=== PATIENT | male | born 1980 | race Caucasian/White ===

== ENCOUNTER 2017-03-15 00:21 | Emergency (ER) | payer MEDICAID ==
[2017-03-15 00:48] VITALS: BP 131/80; PULSE 90; RESP 16; TEMP 97.9; O2SAT 93
--- NOTE | 2017-03-15 00:56 | EDPHY ---
H & P Stated Complaint: feet hurt, worried about chemical exposure on Tuesday HPI/ROS: HPI CHIEF COMPLAINT: Bilateral lower extremity swelling, redness HISTORY OF PRESENT ILLNESS: This patient 36-year-old male, significant past medical history for chronic back pain, takes oxycodone daily, presents emergency room with 24 hours of bilateral lower extremity edema, redness and pain. Additionally tells me he has been soaking his feet in salt baths. He thought this may help with his feet pain and swelling. States on Tuesday night he walked to his car barefoot through water after drained and then Tuesday he woke up with feet swelling redness leg swelling and pain. Past Medical History: Chronic back pain Past Surgical History: Lumbar back fusion Social History: Smokes tobacco, marijuana, occasional alcohol use, denies other illicit drugs denies IV drug use Family History: Noncontributory ROS REVIEW OF SYSTEMS: A comprehensive 10 point review of systems is otherwise negative aside from elements mentioned in the history of present illness. Exam Constitutional appears nontoxic triage nursing summary reviewed, vital signs reviewed, awake/alert. Eyes normal conjunctivae and sclera, EOMI, PERRLA. HENT normal inspection, atraumatic, moist mucus membranes, no epistaxis, neck supple/ no meningismus, no raccoon eyes. Respiratory clear to auscultation bilaterally, normal breath sounds, no respiratory distress, no wheezing. Cardiovascular rate normal, regular rhythm, no murmur, no edema, distal pulses normal. Gastrointestinal soft, non-tender, no rebound, no guarding, normal bowel sounds, no distension, no pulsatile mass. Genitourinary no CVA tenderness. Musculoskeletal no midline vertebral tenderness, full range of motion, no calf swelling, no tenderness of extremities, no meningismus, good pulses, neurovascularly intact. Skin bilateral lower extremity there is pitting edema from his knees down including feet, there is mild redness and warmth bilaterally. There is no crepitus. No abscess. Minimally tender. Bilateral lower extremities are neurovascular intact. Neurologic awake, alert and oriented x 3, AAOx3, moves all 4 extremities equally, motor intact, sensory intact, CN II-XII intact, normal cerebellar, normal vision, normal speech. Psychiatric normal mood/affect. Heme/Lymph/Immune no lymphadenopathy. Differential Diagnosis: Includes but is not limited to in a particular order: Renal failure, liver failure, peripheral edema, venous insufficiency, cellulitis Medical Decision Making: Plan for this patient check blood work, try to differentiate if this peripheral edema versus cellulitis. Will do basic blood work including inflammatory markers. Re-evaluation: [id number]: Patient resting comfortably here in emergency room no acute distress. Blood work reviewed no signs of infection specifically is no high white count, there is no bandemia, ESR and CRP appear normal. I doubt this is bilateral lower extremity circumferential cellulitis. Most likely this is peripheral edema. I do recommend that he elevates his legs as much as possible, use compression stockings. If he develops worsening redness, fever, pain, swelling should return emergency room. Also has noted his feet are somewhat dirty I did recommend better hygiene. Keep his extremities clean. Source: Patient - Personal History Current Tetanus/Diphtheria Vaccine: Yes Current Tetanus Diphtheria and Acellular Pertussis (TDAP): Yes - Medical/Surgical History Hx Asthma: No Hx Chronic Respiratory Disease: No Hx Diabetes: No Hx Cardiac Disease: No Hx Renal Disease: No Hx Cirrhosis: No Hx Alcoholism: No Hx HIV/AIDS: No Hx Splenectomy or Spleen Trauma: No Other PMH: chronic pain, back surgeries - Social History Smoking Status: Current every day smoker Constitutional: Initial Vital Signs Temperature (C) 36.6 C 03/15/17 00:23 Heart Rate 90 03/15/17 00:23 Respiratory Rate 16 03/15/17 00:23 Blood Pressure 131/80 H 03/15/17 00:23 O2 Sat (%) 93 03/15/17 00:23 O2 Delivery Mode Room Air Allergies/Adverse Reactions: No Known Allergies Allergy (Unverified 03/15/17 00:38) Home Medications: Medication Instructions Recorded Adderall 10 MG (*) 03/15/17 Oxycodone HCl 03/15/17 Medical Decision Making - Data Points Laboratory Results: Laboratory Results 03/15/17 01:15 03/15/17 01:15 03/15/17 03/15/17 01:15 01:15 WBC 3.45 10^3/uL L 10^3/uL (3.80-9.50) RBC 4.45 10^6/uL 10^6/uL (4.40-6.38) Hgb 13.1 g/dL L g/dL (13.7-17.5) Hct 39.4 % L % (40.0-51.0) MCV 88.5 fL fL (81.5-99.8) MCH 29.4 pg pg (27.9-34.1) MCHC 33.2 g/dL g/dL (32.4-36.7) RDW 12.1 % % (11.5-15.2) Plt Count 176 10^3/uL 10^3/uL (150-400) MPV 10.3 fL fL (8.7-11.7) Neut % (Auto) 58.5 % % (39.3-74.2) Lymph % (Auto) 34.2 % % (15.0-45.0) Union % (Auto) 6.1 % % (4.5-13.0) Eos % (Auto) 0.9 % % (0.6-7.6) Baso % (Auto) 0.3 % % (0.3-1.7) Nucleat RBC Rel Count 0.0 % % (0.0-0.2) Absolute Neuts (auto) 2.02 10^3/uL 10^3/uL (1.70-6.50) Absolute Lymphs (auto) 1.18 10^3/uL 10^3/uL (1.00-3.00) Absolute Monos (auto) 0.21 10^3/uL L 10^3/uL (0.30-0.80) Absolute Eos (auto) 0.03 10^3/uL 10^3/uL (0.03-0.40) Absolute Basos (auto) 0.01 10^3/uL L 10^3/uL (0.02-0.10) Absolute Nucleated RBC 0.00 10^3/uL 10^3/uL (0-0.01) Immature Gran % 0.0 % % (0.0-1.1) Immature Gran # 0.00 10^3/uL 10^3/uL (0.00-0.10) ESR 9 MM/HR MM/HR (0-15) Sodium 147 mEq/L H mEq/L (134-144) Potassium 3.8 mEq/L mEq/L (3.5-5.2) Chloride 106 mEq/L mEq/L (97-110) Carbon Dioxide 27 mEq/l mEq/l (22-31) Anion Gap 14 mEq/L mEq/L (8-16) BUN 17 mg/dL mg/dL (7-23) Creatinine 0.9 mg/dL mg/dL (0.7-1.3) Estimated GFR > 60 Glucose 89 mg/dL mg/dL (70-100) Calcium 9.6 mg/dL mg/dL (8.5-10.4) Total Bilirubin 0.8 mg/dL mg/dL (0.1-1.4) AST 28 IU/L IU/L (17-59) ALT 43 IU/L IU/L (21-72) Alkaline Phosphatase 72 IU/L IU/L (38-126) C-Reactive Protein < 5.0 mg/L mg/L (<10.0) Total Protein 7.3 g/dL g/dL (6.3-8.2) Albumin 4.5 g/dL g/dL (3.5-5.0) Departure - Departure Disposition: Home, Routine, Self-Care Clinical Impression: Peripheral edema Condition: Good Instructions: Edema (ED) Additional Instructions: 1. Please elevate your legs. 2. Use Compression stockings. 3. Return to the Er if worsening symptoms, swelling, pain, redness, fever. Referrals: DEBRA JESUS [Other] - As per Instructions
[2017-03-15 01:34] LABS: ADD DIFF? NO; ADD MORPH? NO; ADD SCAN? NO; ATYPICAL LYMPHOCYTE FLAG 40 (0-99); FRAGMENT RBC FLAG 0 (0-99); HEMATOCRIT 39.4 % (40.0-51.0); HEMOGLOBIN 13.1 g/dL (13.7-17.5); LEFT SHIFT FLG 0 (0-99); LIPEMIA HEMOLYSIS FLAG 80 (0-99); MEAN CELL HEMOGLOBIN 29.4 pg (27.9-34.1); MEAN CELL HEMOGLOBIN CONCENTR. 33.2 g/dL (32.4-36.7); MEAN CELL VOLUME 88.5 fL (81.5-99.8); MEAN PLATELET VOLUME 10.3 fL (8.7-11.7); PLATELET CLUMPS FLAG 0 (0-99); PLATELET COUNT 176 10^3/uL (150-400); RED BLOOD CELL COUNT 4.45 10^6/uL (4.40-6.38); RED CELL DISTRIBUTION WIDTH 12.1 % (11.5-15.2)
[2017-03-15 01:47] LABS: ALANINE AMINOTRANSFERASE 43 IU/L (21-72); ALBUMIN 4.5 g/dL (3.5-5.0); ALKALINE PHOSPHATASE 72 IU/L (38-126); ANION GAP 14 mEq/L (8-16); ASPARTATE AMINOTRANSFERASE 28 IU/L (17-59); BILIRUBIN,TOTAL 0.8 mg/dL (0.1-1.4); C-REACTIVE PROTEIN < 5.0 mg/L (<10.0); CALCIUM 9.6 mg/dL (8.5-10.4); CARBON DIOXIDE 27 mEq/l (22-31); CHLORIDE 106 mEq/L (97-110); CREATININE 0.9 mg/dL (0.7-1.3); GLOMERULAR FILTRATION RATE > 60; GLUCOSE 89 mg/dL (70-100); POTASSIUM 3.8 mEq/L (3.5-5.2); SODIUM 147 mEq/L (134-144); TOTAL PROTEIN 7.3 g/dL (6.3-8.2)
[2017-03-15 01:54] LABS: SEDIMENTATION RATE 9 MM/HR (0-15)
== END 2017-03-15 04:20 | disposition home or self-care (01) ==
LOC: EEVIPCON 00:21
DX: R60.0 Localized edema (principal); F17.200 Nicotine dependence, unspecified, uncomplicated